=== PATIENT | female | born 1965 | race Caucasian/White ===

== ENCOUNTER → 2019-06-01 11:14 | Outpatient (CLI) | payer OTHER, SELFPAY ==
[2019-06-01 14:15] LABS: Hemoglobin A1C 10.6 % (4.0-6.0)
[2019-06-01 14:21] LABS: Chloride 97 mmol/L (98-107); Potassium 4.3 mmoL/L (3.5-5.1); Sodium 134 mmol/L (136-145)
[2019-06-01 14:23] LABS: Blood Urea Nitrogen 15 mg/dl (7-17); Estimated Glomerular Filt Rate 88 ml/min (>60); GFR (African American) 106 ML/MIN (>60)
[2019-06-01 14:24] LABS: Alanine Aminotransferase 24 U/L (12-78); Albumin Level 4.2 g/dl (3.5-5.0); Albumin/Globulin Ratio 1.4 (1.1-1.8); Alkaline Phosphatase 85 U/L (38-126); Anion Gap 14.3 mEq/L (5-15); Aspartate Amino Transferase 41 U/L (14-36); Bilirubin,Total 0.6 mg/dl (0.2-1.3); Calcium 9.5 mg/dl (8.4-10.2); Carbon Dioxide 27 mmol/L (22.0-30.0); Chol/HDL Ratio 4.4 (1-3.5); Cholesterol 179 mg/dl (140-200); Glucose 174 mg/dl (74-100); HDL Cholesterol 41 mg/dl (40-60); Total Protein,Serum 7.2 g/dl (6.3-8.2); Triglycerides 288 mg/dl (30-150); VLDL Cholesterol 58 mg/dL (0-40)
[2019-06-01 14:37] LABS: Direct LDL Cholesterol 89.86 mg/dL (100-129)
[2019-06-01 14:45] LABS: T4 (Thyroxine) 13.8 ug/dl (5.53-11.0)
[2019-06-01 14:59] LABS: Thyroid Stimulating Hormone 1.64 uIU/mL (0.465-4.68)
== END ==
PROVIDERS: Visit Provider Family Medicine
DX: I10 Essential (primary) hypertension (principal); E78.5 Hyperlipidemia, unspecified; E11.9 Type 2 diabetes mellitus without complications; L50.9 Urticaria, unspecified
CPT/HCPCS: 36415; 80053; 80061; 83036; 84436; 84443